=== PATIENT | male | born 1945 | race Hispanic/Latino ===

== ENCOUNTER 2024-12-30 13:41 | Outpatient (RCR) | payer MEDICARE ==
[~2024-12-30 13:41] MED LIST: FLOMAX0.4 MG PO; LISINOPRIL20 MG PO; PRAVASTATIN SOD10 MG PO; RAPAFLO8 MG PO; REFLUX MEDICATION PO; TUMS ULTRA400 MG PO; VITAMIN D31250 MCG PO
== END 2025-01-01 ==
LOC: PT 13:41
PROVIDERS: ATTEND Family Medicine
DX: M25.512 Pain in left shoulder (principal); M25.511 Pain in right shoulder

== ENCOUNTER 2025-01-15 14:00 | Outpatient (RCR) | payer MEDICARE | END 2025-02-01 | LOC: PT 14:00 | PROVIDERS: ATTEND Family Medicine | DX: M25.512 Pain in left shoulder (principal); M25.511 Pain in right shoulder ==